=== PATIENT | male | born 1990 | race African-American/Black ===

== ENCOUNTER 2017-02-20 13:22 | Emergency (ER) | payer SELFPAY ==
[~2017-02-20] VITALS: Ht 180.3 cm; Wt 83.9 kg
[~2017-02-20 13:22] MED LIST: DENIES
--- NOTE | 2017-02-20 13:22 | NUR ---
Patient BIBA BLS, transferred to bed 7. RN evaluating patient at bedside.
[2017-02-20 13:26] VITALS: BP 105/53
--- NOTE | 2017-02-20 13:39 | NUR ---
26/m biba FOR EVALUATION OF ALOC, +ETOH AND MARIJUANA. HX ASTHMA, SCHIZOPHRENIA, DEPRESSION. DENIES N/V/D; SKIN IS PINK/WARM/DRY; AAOX3 WITH EVEN AND STEADY GAIT; LUNGS CLEAR BL; HR EVEN AND REGULAR; PT DENIES ANY FEVER, CP, SOB, OR COUGH AT THIS TIME; VSS; PATIENT POSITIONED FOR COMFORT; HOB ELEVATED; BEDRAILS UP X2; BED DOWN. ER MD MADE AWARE OF PT STATUS.
--- NOTE | 2017-02-20 13:40 | NUR ---
PT GAVE US NUMBER . STS NUMBER IS PT'S GRANDMA. NUMBER CALLED X2, LEFT VOICEMAIL.
--- NOTE | 2017-02-20 14:36 | NUR ---
Patient being evaluated by physician at bedside.
[2017-02-20] MEDS ORDERED: KETOROLAC 60 MG/2 ML VIAL IM ONE (14:40)
--- NOTE | 2017-02-20 15:22 | NUR ---
PT AMBULATE WITH ASSISTANCE IN ED. PT FAVIAN WELL. CRACKERS AND WATER GIVEN TO PT. PT STILL APPEARS DROWSY WITH C/O PAIN TO L SHOULDER PAIN.
--- NOTE | 2017-02-20 15:40 | NUR ---
pt amb to restroom to void. pt lupe well. pt awake, alert and oriented.
[2017-02-20 16:06] VITALS: BP 110/62
== END 2017-02-20 15:48 | disposition home or self-care (01) ==
LOC: MED 13:22
DX: M25.512 Pain in left shoulder (principal); R41.82 Altered mental status, unspecified; R06.02 Shortness of breath; F10.129 Alcohol abuse with intoxication, unspecified; F17.210 Nicotine dependence, cigarettes, uncomplicated
CPT/HCPCS: 96372; 99283; J1885